=== PATIENT | male | born 1975 | race Hispanic/Latino ===

== ENCOUNTER 2017-05-20 09:15 | Emergency (ER) | payer BC ==
[2017-05-20 09:46] VITALS: RESP 18; BMI 44.3
--- NOTE | 2017-05-20 09:52 | ED PDOC ---
Arrival/HPI - General Time Seen by Provider: 05/20/17 09:45 Historian: Patient - History of Present Illness Narrative History of Present Illness (Text): 05/20/17 09:45 42 y/o male, pmh including dm/lt. knee menisucus with osteoarthiritis/migraine ( chronically on vicodin), allergic to sumatriptan, c/o lt. knee pain x 2 days after squatting down and getting up from the ground. Aching pain, aggravated by weight bearing and walking, unable to his orthopedic and been walking on it, here for the medical evaluation, no calf or thigh pain, no palpitation, no rash , no night sweat, no dizziness, no change in vision, no rash, no other medical or psychological complaints. Past Medical History - Provider Review Nursing Documentation Reviewed: Yes - Infectious Disease Hx of Infectious Diseases: None - Tetanus Immunization Tetanus Immunization: Unknown - Endocrine/Metabolic Hx Diabetes Mellitus Type 2: Yes - Psychiatric Hx Depression: No Hx Emotional Abuse: No Hx Physical Abuse: No Hx Substance Use: No - Surgical History Hx Cholecystectomy: Yes - Suicidal Assessment Feels Threatened In Home Enviroment: No Family/Social History - Physician Review Nursing Documentation Reviewed: Yes Family/Social History: Unknown Family HX Smoking Status: Heavy Smoker > 10 Cigarettes Daily Hx Alcohol Use: Yes Hx Substance Use: No Hx Substance Use Treatment: No Allergies/Home Meds Allergies/Adverse Reactions: Allergies shellfish derived Allergy (Verified 05/20/17 09:39) ANAPHYLAXIS sumatriptan [From Imitrex] Allergy (Verified 05/20/17 09:39) SHORTNESS OF BREATH Home Medications: Home Meds Medication Instructions Recorded Confirmed Celecoxib [Celebrex] 200 mg PO BID 05/20/17 05/20/17 Cyclobenzaprine [Cyclobenzaprine 10 mg PO TID 05/20/17 05/20/17 HCl] GlipiZIDE [Glipizide] 20 mg PO BID 05/20/17 05/20/17 Hydrocodone/Acetaminophen [Vicodin 1 tab PO PRN PRN 05/20/17 05/20/17 Es 300 mg-7.5 mg] Insulin Glargine, Recombina 40 unit SC BID 05/20/17 05/20/17 [Lantus] Levocetirizine Dihydrochloride 5 mg PO HS 05/20/17 05/20/17 [Xyzal] Losartan [Cozaar] 100 mg PO DAILY 05/20/17 05/20/17 Omeprazole Magnesium [Prilosec Otc] 40 mg PO HS 05/20/17 05/20/17 Rizatriptan Benzoate [Maxalt] 10 mg PO PRN PRN 05/20/17 05/20/17 SITagliptin [Januvia] 100 mg PO DAILY 05/20/17 05/20/17 Venlafaxine [Effexor XR] 150 mg PO HS 05/20/17 05/20/17 Review of Systems - Review of Systems Constitutional: absent: Fatigue, Fevers Eyes: absent: Vision Changes ENT: absent: Hearing Changes Respiratory: absent: SOB, Cough Cardiovascular: absent: Chest Pain, Syncope Gastrointestinal: absent: Abdominal Pain, Diarrhea, Nausea, Vomiting Musculoskeletal: Arthralgias, Joint Swelling. absent: Back Pain, Neck Pain, Myalgias Skin: absent: Rash, Pruritis Neurological: absent: Headache, Dizziness Psychiatric: absent: Anxiety, Depression, Suicidal Ideation Physical Exam Vital Signs Resp BP 05/20/17 09:40 18 123/71 Temperature: Afebrile Pulse: Regular Respiratory Rate: Normal Pain Distress: Moderate Mental Status: Positive for: Alert and Oriented X 3 - Systems Exam Head: Present: Atraumatic, Normocephalic Pupils: Present: PERRL Extroacular Muscles: Present: EOMI Conjunctiva: Present: Normal Mouth: Present: Moist Mucous Membranes Neck: Present: Normal Range of Motion Respiratory/Chest: Present: Clear to Auscultation, Good Air Exchange. No: Respiratory Distress, Accessory Muscle Use Cardiovascular: Present: Regular Rate and Rhythm, Normal S1, S2, Other (no pedal edema). No: Murmurs Abdomen: Present: Normal Bowel Sounds. No: Tenderness, Distention, Peritoneal Signs Back: Present: Normal Inspection Upper Extremity: Present: Normal Inspection. No: Cyanosis, Edema Lower Extremity: Present: Normal Inspection, Other (Lt. knee: +ttp and swelling on the anterior medial aspect along the medial menisucus region, +creptius sound upon flexion/extension passively, no erythematous or signs of septic joints, FROM without limitation but painful with active walking, able to stand and walk, sensation intact, motor 5/5, +DPPT pulses, capillary refill< 2 seconds , neurovasuclar intact. ). No: Edema Neurological: Present: GCS=15, CN II-XII Intact, Speech Normal Skin: Present: Warm, Dry, Normal Color. No: Rashes Psychiatric: Present: Alert, Oriented x 3, Normal Insight, Normal Concentration Medical Decision Making ED Course and Treatment: 05/20/17 09:53 -lt. knee xray -toradol/percocet -hector wrap/knee immobilizer/crutches -observe and reassess 05/20/17 11:14 -Xray show no fracture or dislocation but there is joint effusion. -I explained to the patient that there is likely meniscus or soft tissue/ ligament injury which he should definitely followup with the orthopedic for MRI of the lt. knee if indicated, pt. verbally expressed understanding. -Discharge home with hector wrap, knee immobilizer, crutches, naproxen, ice pack, continue vicodin at home, non-weight bearing, bring the copy of the CD to your orthopedic doctor and pmd within 2 days, return to the ER for any new or worsening signs or symptoms. - RAD Interpretation Radiology Orders: 05/20/17 10:34 KNEE WITH PATELLA LEFT 3 VIEW [RAD] Stat BONES: Normal. No fracture. JOINTS: Normal. No osteoarthritis. JOINT EFFUSION: Moderate-sized joint effusion OTHER FINDINGS: None. IMPRESSION: Moderate-sized joint effusion. 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 No Sleep Is patient sleeping during reassessment? No Presence of Pain Presence of Pain No Location Left, Right or Bilateral Left IM Administration Charges Document 05/20/17 10:19 EAR (Rec: 05/20/17 10:19 EAR [id number]) Injection Site MAR Injection Site Left Deltoid Charges for Administration # of IM Administrations 1 Oxycodone/Acetaminophen (Percocet 5/325 Mg Tab) 1 tab PO STAT STA Stop: 05/20/17 09:54 Last Admin: 05/20/17 10:19 Dose: 1 tab [facility] Pain Assessment Document 05/20/17 10:19 EAR (Rec: 05/20/17 10:20 EAR [id number]) Pain Reassessment Is this a pain reassessment? No Sleep Is patient sleeping during reassessment? No Presence of Pain Presence of Pain No Location Left, Right or Bilateral Left Pain Location Body Site Leg Description Description Intermittent Alleviating Factors/Management Medication Techniques - PA / PREPLEATER / Resident Statement / has reviewed & agrees with the documentation as recorded. Disposition/Present on Arrival - Present on Arrival Any Indicators Present on Arrival: No History of DVT/PE: No History of Uncontrolled Diabetes: No Urinary Catheter: No History of Decub. Ulcer: No History Surgical Site Infection Following: None - Disposition Have Diagnosis and Disposition been Completed?: Yes Diagnosis: Knee injury, Knee pain, Degenerative joint disease of knee, Joint effusion Disposition: HOME/ ROUTINE Disposition Time: 10:01 Patient Plan: Discharge Patient Problems: Current Active Problems Problem Status Onset Knee injury Acute Knee pain Acute Degenerative joint disease of knee Acute Condition: GOOD Additional Instructions: -Discharge home with hector wrap, knee immobilizer, crutches, naproxen, ice pack, continue vicodin at home, non-weight bearing, bring the copy of the CD to your orthopedic doctor and pmd within 2 days, return to the ER for any new or worsening signs or symptoms. Prescriptions: Naproxen 500 mg PO BID PRN #20 tablet PRN Reason: Other Referrals: Rosemarie ARIZMENDI,Jack Hebert MD [Primary Care Provider] - Follow up with primary Sam Griffin DO [Staff Provider] - Follow up with primary Forms: WORK NOTE
[2017-05-20] MEDS ORDERED: Oxycodone/Acetaminophen 5/325 mg Tab PO STA (09:53)
--- NOTE | 2017-05-20 11:26 | RAD ---
PROCEDURE: Left Knee Radiographs. HISTORY: Pain. COMPARISON: None. FINDINGS: BONES: Normal. No fracture. JOINTS: Normal. No osteoarthritis. JOINT EFFUSION: Moderate-sized joint effusion OTHER FINDINGS: None. IMPRESSION: Moderate-sized joint effusion. No evidence of fracture
[2017-05-20 11:31] VITALS: BP 119/59; PULSE 84; TEMP 98.1; O2SAT 97
== END 2017-05-20 11:50 | disposition home or self-care (01) ==
LOC: ED 09:15
DX: S89.92XA Unspecified injury of left lower leg, initial encounter (principal); X50.1XXA Overexertion from prolonged static or awkward postures, initial encounter; Y92.89 Other specified places as the place of occurrence of the external cause; M17.12 Unilateral primary osteoarthritis, left knee; M25.462 Effusion, left knee; E11.9 Type 2 diabetes mellitus without complications
CPT/HCPCS: 29530; 73562; 82948; 96372; 99285; J1885